=== PATIENT | female | born 1980 | race Two or more races ===

== ENCOUNTER 2018-04-17 11:27 | Outpatient (CLI) | END 2018-04-17 13:15 | disposition home or self-care (01) ==

== ENCOUNTER 2018-04-24 10:53 | Outpatient (CLI) | END 2018-04-24 12:28 | disposition home or self-care (01) ==

== ENCOUNTER 2018-05-01 10:20 | Outpatient (CLI) | END 2018-05-01 12:40 | disposition home or self-care (01) ==

== ENCOUNTER 2018-05-05 10:43 | Outpatient (CLI) | END 2018-05-05 14:44 | disposition home or self-care (01) ==

== ENCOUNTER 2018-05-14 18:15 | Inpatient (IN) | END 2018-05-18 18:53 | disposition home or self-care (01) | DRG 775 ==